=== PATIENT | male | born 1980 | race Caucasian/White ===

== ENCOUNTER 2018-05-02 12:10 | Emergency (ER) | payer SELFPAY ==
[~2018-05-02] VITALS: Ht 180.3 cm; Wt 105.2 kg
[2018-05-02 12:37] LABS: BILIRUBIN,URINE NEG (NEG); CLARITY,URINE HAZY; COLOR,URINE YELLOW; GLUCOSE,URINE NEG (NEG)
[2018-05-02 12:38] LABS: NITRITE,URINE NEG (NEG); UROBILINOGEN,URINE 0.2 mg/dL (0.2 mg/dL)
--- NOTE | 2018-05-02 13:00 | RAD ---
Examination: CT ABDOMEN PELVIS WO CONTRAST History: PAIN SINCE THIS MORNING. HEMOTURIA. Comparison/Correlation: None Findings: Axial images of the abdomen and pelvis were obtained. Sagittal and coronal reformatted images provided. Visualized lung bases are clear. Spleen is borderline in size measuring 13.5 cm longitudinal. Liver is unremarkable. Gallbladder fossa is unremarkable. Adrenal glands are normal. Pancreas is normal. Right collecting system is unremarkable. Distal left ureteral calculus measuring approximate 0.3 cm diameter is present and is near the ureterovesical junction. Associated left hydronephrosis with perinephric stranding evident. Minimal left periureteral stranding is present. Urinary bladder is unremarkable. Bilateral inguinal hernias containing omental fat are present and greater in size on the right. No ascites or pelvic free fluid. Vertebral body heights and disc spaces are adequate. Impression: Distal left ureteral obstructive calculus with associated hydronephrosis and hydroureter. Electronically signed by: Bon May MD (05/02/2018 12:56 PM) [facility]
--- NOTE | 2018-05-02 13:20 | PHYS DOC ---
Past History Past Medical History: No Pertinent History, Other Past Surgical History: Tonsillectomy, Other Smoking: Non-smoker Alcohol Use: Sober Drug Use: Marijuana Adult General Chief Complaint Chief Complaint: ABDOMINAL PAIN HPI HPI Patient is a 38 year old male who presents with complaining of lower abdominal pain since this morning as a constant and sudden onset of pain with radiation to suprapubic area. Patient complaining of nausea and dry heaves without fever and chills, urinary symptoms, history of the same problem. Patient states he had acute gastroenteritis 1 week ago that resolved spontaneously. Review of Systems Review of Systems Constitutional: Denies fever or chills [] Eyes: Denies change in visual acuity, redness, or eye pain [] HENT: Denies nasal congestion or sore throat [] Respiratory: Denies cough or shortness of breath [] Cardiovascular: No additional information not addressed in HPI [] GI: Reports abdominal pain, nausea, vomiting, denies bloody stools or diarrhea [ ] : Denies dysuria or hematuria [] Musculoskeletal: Denies back pain or joint pain [] Integument: Denies rash or skin lesions [] Neurologic: Denies headache, focal weakness or sensory changes [] Endocrine: Denies polyuria or polydipsia [] All other systems were reviewed and found to be within normal limits, except as documented in this note. Allergies Allergies Allergies Coded Allergies Type Severity Reaction Last Updated Verified No Known Drug Allergies 05/02/18 No Physical Exam Physical Exam Constitutional: Well developed, well nourished, mild acute distress, non-toxic appearance. [] HENT: Normocephalic, atraumatic, oropharynx moist, no oral exudates, nose normal. [] Eyes: PERRLA, EOMI, conjunctiva normal, no discharge. [] Neck: Normal range of motion, no tenderness, supple, no stridor. [] Cardiovascular:Heart rate regular rhythm, no murmur [] Lungs & Thorax: Bilateral breath sounds clear to auscultation [] Abdomen: Bowel sounds normal, soft, no tenderness, no masses, no pulsatile masses. [] Skin: Warm, dry, no erythema, no rash. [] Back: No tenderness, no CVA tenderness. [] Extremities: No tenderness, no cyanosis, no clubbing, ROM intact, no edema. [] Neurologic: Alert and oriented X 3, normal motor function, normal sensory function, no focal deficits noted. [] Psychologic: Affect normal, judgement normal, mood normal. [] Current Patient Data Vital Signs Vital Signs Date Time Temp Pulse Resp B/P (MAP) Pulse Ox O2 Delivery O2 Flow Rate FiO2 05/02/18 12:10 98.6 94 16 99 Room Air Lab Results Laboratory Tests Test 05/02/18 12:23 Urine Collection Type Unknown Urine Color Yellow Urine Clarity Hazy Urine pH 7.0 Urine Specific [place] 1.015 Urine Protein Trace (NEG-TRACE) Urine Glucose (UA) Neg mg/dL (NEG) Urine Ketones (Stick) Neg mg/dL (NEG) Urine Blood Large (NEG) Urine Nitrite Neg (NEG) Urine Bilirubin Neg (NEG) Urine Urobilinogen Dipstick 0.2 mg/dL (0.2 mg/dL) Urine Leukocyte Esterase Neg (NEG) EKG EKG [] Radiology/Procedures Radiology/[place] [address] IMAGING REPORT Signed PATIENT: JONO FONSECA ACCOUNT: [id number] : 1980 LOCATION: ER AGE: 38 SEX: M EXAM STATUS: REG ER ORD. PHYSICIAN: JAVAD TENORIO MD REASON: lowerl abdominal pain with hematuria PROCEDURE: CT ABDOMEN PELVIS WO CONTRAST Examination: CT ABDOMEN PELVIS WO CONTRAST History: PAIN SINCE THIS MORNING. HEMOTURIA. Comparison/Correlation: None Findings: Axial images of the abdomen and pelvis were obtained. Sagittal and coronal reformatted images provided. Visualized lung bases are clear. Spleen is borderline in size measuring 13.5 cm longitudinal. Liver is unremarkable. Gallbladder fossa is unremarkable. Adrenal glands are normal. Pancreas is normal. Right collecting system is unremarkable. Distal left ureteral calculus measuring approximate 0.3 cm diameter is present and is near the ureterovesical junction. Associated left hydronephrosis with perinephric stranding evident. Minimal left periureteral stranding is present. Urinary bladder is unremarkable. Bilateral inguinal hernias containing omental fat are present and greater in size on the right. No ascites or pelvic free fluid. Vertebral body heights and disc spaces are adequate. Impression: Distal left ureteral obstructive calculus with associated hydronephrosis and hydroureter. Electronically signed by: Bon Aj MD (05/02/2018 12:56 PM) [facility] DICTATED AND SIGNED BY: BON AJ MD DATE: 05/02/18 1250 CC: JAVAD TENORIO MD; TONI PRICE ~ Course & Med Decision Making Course & Med Decision Making Pertinent Labs and Imaging studies reviewed. (See chart for details) Evaluation of patient in ER showed 38-year-old male patient with complaining of lower abdominal pain since this morning and vomiting. Patient rated his pain for over 10 in ER and didn't want to have pain medication or IV line. Patient had hematuria with left kidney stone in CT of abdomen and pelvis. Patient was advised to follow-up with on-call urologist and strain all of his urine and increase fluid intake. Dragon Disclaimer Dragon Disclaimer This electronic medical record was generated, in whole or in part, using a voice recognition dictation system. Departure Departure: Impression: Primary Impression: Renal colic on left side Additional Impressions: Ureterolithiasis Hematuria Disposition: 01 HOME, SELF-CARE (at 1335) Condition: IMPROVED Referrals: TONI PRICE (PCP) ALIX COATES MD Patient Instructions: Diet for Kidney Stones, Kidney Stones Additional Instructions: Drink plenty of liquids Follow-up with urologist in 2 or 3 days Return to ER if not getting better Strain all of your urine Scripts Tamsulosin Hcl (FLOMAX) 0.4 Mg Cap.er.24h 1 CAP PO DAILY for kidney stone, #14 CAP 0 Refills Prov: JAVAD TENORIO MD 05/02/18 Hydrocodone Bit/Acetaminophen (NORCO 5-325 TABLET) 1 Each Tablet 1 TAB PO PRN Q6HRS PRN for PAIN, #14 TAB 0 Refills Prov: JAVAD TENORIO MD 05/02/18 Naproxen (NAPROSYN) 500 Mg Tablet 500 MG PO BID for pain, #20 TAB Prov: JAVAD TENORIO MD 05/02/18 Problem Qualifiers JAVAD TENORIO MD May 02, 2018 13:20
[2018-05-02] MEDS ORDERED: TAMS0.4C97 PO (13:36)
[2018-05-02] MEDS ORDERED: NAPR-683 PO (13:36)
[2018-05-02] MEDS ORDERED: HYDR-3165 PO (13:36)
[2018-05-02 13:39] VITALS: BP 160/114
[2018-05-02] MEDS ORDERED: KETOROLAC 60 MG/2 ML VIAL. IM ONE (14:00)
[2018-05-02] MEDS ORDERED: TAMSULOSIN 0.4 MG CAP.ER.24H. PO ONE (14:00)
== END 2018-05-02 13:50 | disposition home or self-care (01) ==
LOC: ER 12:10
DX: N13.2 Hydronephrosis with renal and ureteral calculous obstruction (principal); R31.9 Hematuria, unspecified
CPT/HCPCS: 74176; 81003; 96372; 99284; J1885